=== PATIENT | male | born 1995 | race Caucasian/White ===

== ENCOUNTER 2018-01-11 12:48 | Emergency (ER) | payer MEDICAID, OTHER ==
[~2018-01-11] VITALS: Ht 177.8 cm; Wt 63.5 kg
[2018-01-11] MEDS ORDERED: FLUMAZENIL 0.1 MG/ML INJ 10ML MDV IV ONE ×2 (13:00)
[2018-01-11] MEDS ORDERED: SODIUM CHLORIDE 0.9% 1,000 ML IV ONE ×2 (13:08)
[2018-01-11 14:03] LABS: Alanine Aminotransferase 60 U/L (16-61); Albumin 3.7 g/dL (3.4-5.0); Anion Gap 8 (5-15); BUN/Creatinine Ratio 10.3; Blood Alcohol < 3.0 mg/dL (0-5); Blood Urea Nitrogen 7 mg/dL (7-18); Calcium 8.4 mg/dL (8.5-10.1); Carbon Dioxide 25 mmol/L (21-32); Chloride 106 mmol/L (98-107); GFR African American 188 mL/min; GFR Non-African American 155 mL/min; Glucose 82 mg/dL (74-106); Hematocrit 40.8 % (41.0-53.0); Hemoglobin 13.4 g/dL (13.5-17.5); Mean Corpuscular Hgb Conc. 32.9 g/dL (32.0-36.0); Platelet Count (auto) 183 10^3/uL (140-450); Potassium 3.7 mmol/L (3.5-5.1); Red Blood Cells 4.64 10^6/uL (4.5-5.90); Red Cell Distribution Width 13.1 % (11.8-14.3); Sodium 139 mmol/L (136-145); White Blood Cell 6.3 10^3/uL (4.4-10.8)
[2018-01-11 14:04] LABS: Salicylate < 1.7 mg/dL (2.8-20.0)
[2018-01-11 14:08] LABS: Acetaminophen < 2.0 ug/mL (10-30); Alkaline Phosphatase 143 U/L (45-117); Aspartate Aminotransferase 33 U/L (15-37); Band Neutrophils % (manual) 0; Basophils % (manual) 0 (0.0-2.0); Bilirubin, Total 0.6 mg/dL (0.2-1.0); Blast Cells 0; Metamyelocytes % 0; Myelocytes % 0; Promyelocytes % 0; Total Protein 7.4 g/dL (6.4-8.2)
[2018-01-11 14:44] LABS: Eosinophils % (manual) 1 (0-7); Lymphocytes % (manual) 46 (10.0-50.0); Monocytes % (manual) 12 (0-12)
[2018-01-11 14:45] LABS: Reactive Lymphocytes 4
[2018-01-11 19:21] LABS: Urine Bacteria NONE SEEN /hpf (None Seen); Urine Blood Negative /uL (Negative); Urine Specific Gravity 1.004 (1.001-1.035); Urine WBC <1 /hpf (0 - 3)
[2018-01-11 19:33] LABS: Alcohol, Urine < 3.0 mg/dL (0-5); Amphetamine Screen, Urine NEGATIVE (NEGATIVE); Barbiturate Scree,Urine NEGATIVE (NEGATIVE); Benzodiazephine Screen, Urine NEGATIVE (NEGATIVE); Cannabinoid Screen, Urine NEGATIVE (NEGATIVE); Cocaine Screen, Urine NEGATIVE (NEGATIVE); Opiate Scree,Urine NEGATIVE (NEGATIVE); Phencyclidine Screen, Urine NEGATIVE (NEGATIVE)
[2018-01-11 19:45] VITALS: BP 130/72
== END 2018-01-11 19:55 | disposition short-term general hospital (02) ==
LOC: ER 12:48
DX: G92 Toxic encephalopathy (principal); R41.82 Altered mental status, unspecified; I10 Essential (primary) hypertension
CPT/HCPCS: 36415; 70450; 71045; 80053; 80307; 80320; 80329; 81001; 84484; 85007; 85027; 93005; 96361; 96374; 99291; J7030